=== PATIENT | female | born 1995 | race Asian ===

== ENCOUNTER 2022-07-25 16:11 | Emergency (ER) | payer MEDICAID ==
[~2022-07-25] VITALS: Ht 157.5 cm; Wt 80.7 kg
[2022-07-25 16:24] VITALS: BP 134/78
[2022-07-25] MEDS ORDERED: IBUP-1953 PO (19:00)
== END 2022-07-25 19:08 | disposition home or self-care (01) ==
LOC: ER 16:29
DX: S60.122A Contusion of left index finger with damage to nail, initial encounter (principal); I10 Essential (primary) hypertension; E03.9 Hypothyroidism, unspecified; Z60.2 Problems related to living alone; W23.0XXA Caught, crushed, jammed, or pinched between moving objects, initial encounter; Y93.89 Activity, other specified; Y92.89 Other specified places as the place of occurrence of the external cause; Y99.8 Other external cause status
CPT/HCPCS: 73140-TC